=== PATIENT | male | born 1935 | race Two or more races ===

== ENCOUNTER 2019-09-11 12:08 | Emergency (ER) | payer MEDICARE, BC ==
[2019-09-11 12:50] VITALS: BP 160/60
--- NOTE | 2019-09-11 13:25 | UC ---
Abdominal Pain Male HPI - HPI Summary HPI Summary: diffuse abdominal pain x 1 day pain is 6 out of 10 , pain is constant , nothing makes it better or worse, + radiation to his lower back feels feverish , + nausea , no vomiting, no dysuria, + urinary frequency , - History of Current Complaint Chief Complaint: UCAbdominalPain Stated Complaint: FEVER,[place],UPSET STOMACH Time Seen by Provider: 09/11/19 12:53 Hx Obtained From: Patient Onset/Duration: Gradual Onset, Lasting Days - 1, Still Present Timing: Constant Severity Initially: Moderate Severity Currently: Moderate Pain Intensity: 6 Location: Diffuse Radiates: Yes Radiates to: Back Character: Aching Aggravating Factor(s): Nothing Alleviating Factor(s): Nothing Associated Signs And Symptoms: Positive: Fever, Urinary Symptoms, Nausea. Negative: Chest Pain, Constipation, Blood in Stool, Decreased Appetite, Vomiting , Diarrhea, Penile Discharge - Allergies/Home Medications Allergies/Adverse Reactions: Allergies Allergy/AdvReac Type Severity Reaction Status Date / Time No Known Allergies Allergy Verified 09/11/19 12:46 Home Medications: Home Medications Simvastatin TAB(NF) [Zocor 10 MG (NF)] mg PO DAILY 09/11/19 [History] Vitamin THERAPEUTIC TAB* [Theragran TAB*] 1 tab PO DAILY 09/11/19 [History Confirmed 09/11/19] amLODIPine TAB* [Norvasc 5 mg TAB*] 2.5 mg PO DAILY 09/11/19 [History Confirmed 09/11/19] PMH/Surg Hx/FS Hx/Imm Hx Cardiovascular History: Hypertension - Surgical History Surgical History: None - Family History Known Family History: Positive: Hypertension - Social History Alcohol Use: Occasionally Substance Use Type: None Smoking Status (MU): Never Smoked Tobacco Review of Systems All Other Systems Reviewed And Are Negative: Yes Constitutional: Positive: Negative Skin: Positive: Negative Eyes: Positive: Negative ENT: Positive: Negative Gastrointestinal: Positive: Abdominal Pain, Nausea. Negative: Vomiting, Diarrhea Genitourinary: Positive: Frequency Is Patient Immunocompromised?: No Physical Exam Triage Information Reviewed: Yes Appearance: Well-Appearing, No Pain Distress, Well-Nourished Vital Signs: Initial Vital Signs Temp 99.8 F 09/11/19 12:43 Pulse 78 09/11/19 12:43 Resp 22 09/11/19 12:43 BP 160/60 09/11/19 12:43 Pulse Ox 97 09/11/19 12:43 Vital Signs Reviewed: Yes Eye Exam: Normal Eyes: Positive: Conjunctiva Clear ENT: Positive: Normal ENT inspection, Hearing grossly normal, Pharynx normal Neck: Positive: Supple, Nontender, No Lymphadenopathy Respiratory: Positive: Chest non-tender, Lungs clear, Normal breath sounds Cardiovascular: Positive: RRR, No Murmur, Pulses Normal Abdomen Description: Positive: Nontender, Soft. Negative: CVA Tenderness (R), CVA Tenderness (L), Distended, Guarding Bowel Sounds: Positive: Present Skin Exam: Normal Abd Pain Male Course/Dx - Differential Dx/Clinical Impression Provider Diagnosis: UTI (urinary tract infection) Discharge ED - Sign-Out/Discharge Documenting (check all that apply): Patient Departure All imaging exams completed and their final reports reviewed: No Studies - Discharge Plan Condition: Stable Disposition: HOME Prescriptions: Cephalexin CAP* [Keflex CAP*] 500 mg PO TID #30 cap Patient Education Materials: Urinary Tract Infection in Older Adults (ED) Referrals: Leonidas Rockwell DO [Primary Care Provider] - 3 Days - Billing Disposition and Condition Condition: STABLE Disposition: Home
== END 2019-09-11 13:22 | disposition home or self-care (01) ==
LOC: UCCORT 12:08
DX: N39.0 Urinary tract infection, site not specified (principal); I10 Essential (primary) hypertension; R11.0 Nausea; Z79.899 Other long term (current) drug therapy
CPT/HCPCS: 81003; 87086; 99212; G0463